=== PATIENT | male | born 1970 | race Caucasian/White ===

== ENCOUNTER 2025-06-30 16:44 | Emergency (ER) | payer OTHER ==
[2025-06-30] MEDS: Bacitracin Oint 1 GM U/D Packet TOP ONE (17:22)
[2025-06-30 17:24] VITALS: BP 130/81; PULSE 92
== END 2025-06-30 17:38 | disposition home or self-care (01) ==
LOC: LB.ED 16:44
DX: S60.352A Superficial foreign body of left thumb, initial encounter (principal); Z88.0 Allergy status to penicillin; W45.3XXA Fishing hook entering through skin, initial encounter
CPT/HCPCS: 64450; 99283; 99283-25; J2003